=== PATIENT | female | born 1960 | race Caucasian/White ===

== ENCOUNTER → 2023-08-27 15:46 | Outpatient (REF) | payer MEDICARE, OTHER, SELFPAY | LOC: RAD 15:46 | PROVIDERS: ATTENDING PHYSICIAN Physical Medicine & Rehabilitation; FAMILY PHYSICIAN Family Medicine | DX: M54.2 Cervicalgia (principal); M54.50 Low back pain, unspecified | CPT/HCPCS: 72050; 72072; 72114 ==

== ENCOUNTER → 2023-10-02 11:25 | Outpatient (REF) | payer MEDICARE, OTHER, SELFPAY | LOC: RCS 11:25 | PROVIDERS: ATTENDING PHYSICIAN Nurse Practitioner; FAMILY PHYSICIAN Family Medicine | DX: I48.0 Paroxysmal atrial fibrillation (principal); R55 Syncope and collapse | CPT/HCPCS: 93306 ==

== ENCOUNTER 2024-10-20 10:12 | Emergency (ER) | payer MEDICARE, OTHER, SELFPAY ==
[2024-10-20] VITALS (10 sets, daily range): BP systolic 86–124; BP diastolic 59–82; BMI 24.2
[2024-10-20] MEDS: ADENOCARD 6 MG IV (10:34)
[2024-10-20 11:00] LABS: % Basophils 1.1 % (0-2); % Eosinophils 3.6 % (0-6); % Immature Granulocytes 0.2 % (0-0.5); % Lymphocytes 27.9 % (20.5-51.1); % Monocytes 8.5 % (1.7-9.3); % Neutrophils 58.7 % (42.2-75.2); Absolute Basophils 0.1 10^3/uL (0-0.2); Absolute Eosinophils 0.2 10^3/uL (0-0.7); Absolute Lymphocytes 1.6 10^3/uL (1.2-3.4); Absolute Monocytes 0.5 10^3/uL (0.1-0.6); Absolute Neutrophils 3.3 10^3/uL (1.4-6.5); Hematocrit 38.4 % (37.0-47.0); Hemoglobin 12.5 g/dL (12.0-16.0); Mean Corp Hgb Conc. 32.6 g/dL (33.0-37.0); Mean Corpuscular Hgb 27.7 pg (27.0-31.0); Mean Corpuscular Volume 85.1 fL (81.0-99.0); Mean Platelet Volume 9.8 fL (7.4-10.4); Nucleated Red Blood Cells % 0 %; Platelet Count 244 10^3/uL (130-400); Red Blood Cell Count 4.51 10^6/uL (4.20-5.40); Red Cell Dist. Width 14.1 % (11.5-14.5); White Blood Cell Count 5.6 10^3/uL (4.8-10.8)
[2024-10-20 11:16] LABS: ALT (SGPT) 18 U/L (0-35); AST (SGOT) 35 U/L (14-36); Albumin 4.8 g/dl (3.5-5.0); Alkaline Phosphatase 71 U/L (38-126); Blood Urea Nitrogen 8 mg/dl (7-17); Calcium 10.1 mg/dl (8.4-10.2); Carbon Dioxide 24 mmol/L (22-30); Chloride 105 mmol/L (98-107); Estimated Creatinine Clearance 60 ml/min; Glucose 131 mg/dl (70-99); Magnesium 2.1 mg/dl (1.6-2.3); Sodium 139 mmol/L (135-145); Total Bilirubin 0.5 mg/dl (0.2-1.3); Total Protein 7.1 g/dl (6.3-8.2); eGFR > 60.00
[2024-10-20] MEDS: PERCOCET 5/325 2 TABLET PO (11:38)
[2024-10-20 11:54] LABS: TSH Reflex To Free T4 < 0.02 uIU/ml (0.47-4.68)
[2024-10-20 12:19] LABS: Free T4 0.86 ng/dl (0.78-2.19)
--- NOTE | 2024-10-20 12:53 | ED.GENMED ---
History of Present Illness
General
Chief Complaint: Heart Rate Problem
Source: patient
Exam Limitations: none
Time Seen by Provider: 10/20/24 10:28
Nursing documentation reviewed up to this point in time: agreed with
History of Present Illness
History of Present Illness:
61-year-old female past medical history of previous A-fib remotely presenting to the emergency department today with concerns of significantly elevated heart rate at home in the 170s. Feeling some lightheadedness and palpitations at this point no
chest pain shortness of breath occurred abruptly while at home on the computer.
Review of Systems
Review of Systems
Allergies reviewed?: Yes
All Other Systems: ROS reviewed and negative except as documented in HPI and ROS
Phy Exam
Physical Exam
Physical Exam:
GENERAL: Alert , in no apparent distress
EYE: pupils equal and reactive
NECK: Supple, no significant adenopathy.
ENT: o/p clr, mmm.
CARDIAC: Tachycardic regular
LUNGS: Clear breath sounds bilaterally, no acute respiratory distress, no wheezes/rales/rhonchi
ABDOMEN: Soft, without focal tenderness, no r/g, no cvat
NEUROLOGICAL: Alert and oriented, no focal neuro deficits
SKIN: Warm and dry, skin intact.
MUSCULOSKELETAL: No edema, well perfused.
PSYCH: Normal and appropriate interaction.
Course
Orders/Labs/Results
Orders:
Orders
10/20/24 10:13
Electrocardiogram (*1) Urgent
Reason for Study: Atrial Fibrillation
EKG- Treatment ONCE
10/20/24 10:26
Adenosine [Adenocard] 12 mg .ROUTE .STK-MED ONE
10/20/24 10:30
Adenosine [Adenocard] 6 mg IV NOW STA
10/20/24 10:32
EKG [Electrocardiogram (*1)] Urgent
Reason for Study: Bradycardia / Tachycardia
EKG- Treatment ONCE
10/20/24 10:35
Adenosine [Adenocard] 6 mg .ROUTE .STK-MED ONE
10/20/24 10:49
CBC/With Diff [Complete Blood Count/With Diff] Urgent
CMP [Comprehensive Metabolic Panel] Urgent
Free T4 Urgent
Magnesium Urgent
TSH Reflex To Free T4 Urgent
10/20/24 11:32
Oxycodone/Acetaminophen [Percocet 5/325] 2 tablet PO NOW STA
Abnormal Lab Results
10/20/24
10:49
MCHC 32.6 L g/dL
(33.0-37.0)
Glucose 131 H mg/dl
(70-99)
TSH (Reflex) < 0.02 L uIU/ml
(0.47-4.68)
10/20/24 10:49
10/20/24 10:49
Vital Signs
Initial and Last Documented VS:
Initial Vital Signs
Temp Pulse Resp BP Pulse Ox
97.5 F 176 22 91/66 97
10/20/24 10:17 10/20/24 10:17 10/20/24 10:17 10/20/24 10:17 10/20/24 10:17
Last Documented Vital Signs
Temp Pulse Resp BP Pulse Ox
97.5 F 90 16 116/67 96
10/20/24 10:17 10/20/24 11:00 10/20/24 11:00 10/20/24 10:52 10/20/24 11:00
Procedures
Cardioversion
Indication:: SVT
Performed by:: Myself
Synchronized?: No
Energy Used: Other (Adenosine)
Number of attempts: 1
Successful?: Yes
Complications: No
MDM/Problems Addressed
MDM/Problems Addressed:
64-year-old female presenting to the emergency department today for concerns of elevated heart rate of 170 over the past hour or 2. Blood pressure low on arrival was given fluids. Initially modified Valsalva with 2 times without success. Patient
was then given dose of adenosine with conversion to sinus rhythm. She was watched for 2 hours with no ongoing symptoms well-appearing in no distress labs unremarkable. Stable for discharge. Return precautions given.
*Critical Care Note
Total Time (30-74mins, 75-104mins- exclusive of procedures): Not Applicable (Critical care statement: A total of 40 minutes of critical care time was provided for this patient. This includes management of unstable vital signs, evaluation of the
patient at bedside, reviewing the patient's pertinent medical records, discussion with consultants, review of old EKGs and review of)
ED Attending Note
-
Portions of this chart may have been created with voice recognition software.� Occasional wrong word or��sound alike� substitutions may have occurred due to the inherent limitations of voice recognition software.
Discharge Plan
Departure
Patient Disposition: Home (Routine Discharge)
Date of Disposition: 10/20/24
Time of Disposition: 12:57
Patient with high blood pressure during this ER visit?: No
Condition: Good
Discharge Problem:
SVT (supraventricular tachycardia)
Instructions: Supraventricular tachycardia (SVT)
Prescriptions:
No Action
oxybutynin chloride 10 MG tablet extended release 24hr
10 mg PO DAILY
duloxetine 60 MG capsule,delayed release(DR/EC)
60 mg PO BID
pregabalin [Lyrica] 150 MG capsule
150 mg PO QID
Patient Comments:
unsure of dose
biotin 1 MG capsule
1 mg PO DAILY
metoprolol succinate 25 MG tablet extended release 24 hr
25 mg PO DAILY Qty: 30 3RF
calcium carbonate-vitamin D3 600 mg-5 mcg (200 unit) Tablet
1 tab PO DAILY
Eliquis 5 mg Tablet
5 mg PO BID
Trelegy Ellipta
Patient Comments:
unsure of dose
pantoprazole 40 MG tablet,delayed release (DR/EC)
40 mg PO QPM
flecainide 50 MG tablet
50 mg PO BID
vitamin O46-pemhz acid 500-400 mcg Tablet
1 tab PO DAILY Qty: 0 0RF
Referrals:
Vj Bowser MD [Active] - Follow up in 5-7 days
Sandi George DO [Family Provider] -
Activity Restrictions/Additional Instructions:
You came to the emergency department today with concerns of elevated heart rate. You are found to be in a supraventricular tachycardia. This was fixed with adenosine. Reassuring workup otherwise. 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
Return for any worsening, new or concerning symptoms.
Interventions
Interventions:
*Risk Screen - Suicide Last Done: 10/20/24 10:17
*General Assessment Last Done: 10/20/24 10:17
*Neglect/Abuse Screening Last Done: 10/20/24 10:15
*ED- Fall Risk Assessment Last Done: 10/20/24 10:15
*ED COVID-19 Vaccine History Last Done: 10/20/24 10:15
ED- Cardiac Assessment Last Done: 10/20/24 10:15
ED- Pulmonary Assessment Last Done: 10/20/24 10:15
Discharge Date and Time
Print Language: DOMINICAN
== END 2024-10-20 13:23 | disposition home or self-care (01) ==
LOC: EMR 10:12
PROVIDERS: Physician Assistant; EMERGENCY PHYSICIAN Emergency Medicine; FAMILY PHYSICIAN Family Medicine
DX: I47.10 Supraventricular tachycardia, unspecified (principal)
CPT/HCPCS: 99284; 92960; 96374; 80053; 83735; 84439; 84443; 85025; 93005; J0153